=== PATIENT | male | born 1965 | race Caucasian/White ===

== ENCOUNTER 2022-08-14 12:00 | Inpatient (IN) | payer BC ==
[2022-08-26 17:19] VITALS: BMI 35.4
[2022-08-28] MEDS ORDERED: Fentanyl 250 MCG/5 ML VIAL ONE (06:40)
[2022-08-28] MEDS ORDERED: Midazolam HCl 2 mg/2 ml Vial ONE ×3 (06:40→08:54)
[2022-08-28] MEDS ORDERED: CEFAZOLIN 2 GM VIAL ONE ×2 (06:56→13:42)
[2022-08-28] MEDS ORDERED: Sodium Chloride 0.9% 0 ML ONE (06:56)
[2022-08-28] MEDS ORDERED: Bacitracin Zinc Ointment 30 gm TUBE ONE (06:57)
[2022-08-28] MEDS ORDERED: Ondansetron PF 4 MG/2 ML Vial ONE (07:10)
[2022-08-28] MEDS ORDERED: Rocuronium Bromide 10 MG/ML (10ML VIAL) ONE (07:10)
[2022-08-28] MEDS ORDERED: PROPOFOL 200 MG/20 ML VIAL ONE (07:10)
[2022-08-28] MEDS ORDERED: Vecuronium 10 MG VIAL ONE (07:10)
[2022-08-28] MEDS ORDERED: PHENYLEPHRINE-NS 100 MCG/ML 10 ML SYRINGE ONE (07:10)
[2022-08-28] MEDS ORDERED: Fentanyl 100 MCG/2 ML VIAL ONE ×3 (07:19→13:35)
[2022-08-28] MEDS ORDERED: Lidocaine 1% MPF 2 ML VIAL ONE (07:25)
[2022-08-28 08:58] LABS: SARS-CoV-2 NAA Rapid Test Not Detected (NotDetected)
[2022-08-28] MEDS ORDERED: SUGAMMADEX SODIUM 200 MG/2 ML VIAL ONE (10:51)
[2022-08-28] MEDS ORDERED: Mag-Al 1200 mg/1200 mg/30 ML UDCUP PO PRN (11:04)
[2022-08-28] MEDS ORDERED: Oxybutynin 5 MG TAB PO PRN (11:04)
[2022-08-28] MEDS ORDERED: hydrALAZINE 20 MG/ML VIAL SLOW IVP PRN (11:04)
[2022-08-28] MEDS ORDERED: Bisacodyl 10 MG SUPP PR PRN (11:04)
[2022-08-28] MEDS ORDERED: Dextrose 5% in Water 1,000 ML IV PRN (11:08)
[2022-08-28] MEDS ORDERED: Dextrose 50% Abboject 50 ML SYRINGE SLOW IVP PRN (11:08)
[2022-08-28] MEDS ORDERED: Insulin Regular 300 UNITS/3 ML VIAL SC PRN (11:08)
[2022-08-28] MEDS ORDERED: Promethazine HCl 25 MG SUPP PR PRN (11:26)
[2022-08-28] MEDS ORDERED: Ondansetron HCl/PF 4 MG/2 ML Vial IVP PRN (11:26)
[2022-08-28] MEDS ORDERED: Promethazine HCl 25 MG/ML VIAL IM PRN (11:26)
[2022-08-28] MEDS ORDERED: diphenhydrAMINE 25 MG CAP PO PRN (11:26)
[2022-08-28] MEDS ORDERED: Moisturizing Cream (Eucerin) 113 GM JAR TOP PRN (11:26)
[2022-08-28] MEDS ORDERED: Zolpidem Tartrate 5 MG TAB PO PRN (11:26)
[2022-08-28] MEDS ORDERED: diphenhydrAMINE 50 MG/ML VIAL IM PRN (11:26)
[2022-08-28] MEDS ORDERED: Bupivacaine 0.25% 10 ML VIAL EPIDURAL PRN (11:26)
[2022-08-28] MEDS ORDERED: Naloxone HCl 0.4 mg/ml Vial IVP PRN ×2 (11:26)
[2022-08-28] MEDS ORDERED: Communication Order-Pharmacy FS SCH ×2 (11:30)
[2022-08-28] MEDS ORDERED: Fentanyl 5 mcg/Bupivacaine 0.075% Cassette 100 ML EPIDURAL SCH (11:30)
[2022-08-28 13:10] LABS: Hemoglobin 13.6 g/dL (14.0-18.0); Mean Corpuscular HGB CONC 34.6 g/dL (32.0-36.0); Mean Corpuscular Volume 98.1 fl (78.0-98.0); Platelet Count 161 10x3/uL (130-400); RBC Distribution Width 11.8 % (11.5-14.5); Red Blood Cell (RBC) Count 4.01 mill/uL (4.70-6.10); White Blood Cell (WBC) Count 10.2 10x3/uL (4.8-10.8)
[2022-08-28 13:37] LABS: Anion Gap 18 mmol/L (10-20); BUN (Urea Nitrogen) 18 mg/dL (8.4-25.7); Calc. Creatinine Clearance 127 mL/min (70-130); Calcium 9.6 mg/dL (7.8-10.44); Carbon Dioxide 23 mmol/L (22-29); Chloride 103 mmol/L (98-107); Estimated GFR 88; Glucose 138 mg/dL (70-105); Potassium 4.3 mmol/L (3.5-5.1); Sodium 140 mmol/L (136-145)
[2022-08-28] MEDS ORDERED: Sodium Chloride 0.9% 100 ML ONE (13:42)
[2022-08-28] MEDS: CEFAZOLIN 2 GM in Sodium Chloride 0.9% 100 ML IVPB SCH ×2 (13:48→23:01)
[2022-08-28] MEDS: Sodium Chloride 0.9% 1,000 ML IV SCH ×2 (16:37→22:35)
[2022-08-28] MEDS: Docusate 100 MG CAP PO SCH (20:58)
[2022-08-29 06:06] LABS: Hemoglobin 12.1 g/dL (14.0-18.0); Mean Corpuscular HGB CONC 34.8 g/dL (32.0-36.0); Mean Corpuscular Hemoglobin 34.1 pg (27.0-31.0); Mean Corpuscular Volume 97.8 fl (78.0-98.0); Platelet Count 130 10x3/uL (130-400); RBC Distribution Width 11.8 % (11.5-14.5); Red Blood Cell (RBC) Count 3.56 mill/uL (4.70-6.10)
[2022-08-29] MEDS: FENTANYL 500 MCG/10 ML VIAL 500 MCG, Bupivacaine 0.75% 10 ML in Sodium Chloride 0.9% 80 ML EPIDURAL SCH ×2 (06:18→22:24)
[2022-08-29 06:34] LABS: Band 10 % (5-11); Lymphocytes 12 % (21-51); MDiff Complete? YES; Monocytes 11 % (0-10); Neutrophil 67 % (42-75)
[2022-08-29 06:38] LABS: Anion Gap 13 mmol/L (10-20); BUN (Urea Nitrogen) 13 mg/dL (8.4-25.7); Calc. Creatinine Clearance 131 mL/min (70-130); Calcium 8.6 mg/dL (7.8-10.44); Carbon Dioxide 26 mmol/L (22-29); Chloride 101 mmol/L (98-107); Estimated GFR 91; Glucose 156 mg/dL (70-105); Potassium 3.7 mmol/L (3.5-5.1); Sodium 136 mmol/L (136-145)
[2022-08-29] MEDS: CEFAZOLIN 2 GM in Sodium Chloride 0.9% 100 ML IVPB SCH (06:39)
[2022-08-29] MEDS: Docusate 100 MG CAP PO SCH (09:26)
[2022-08-29] MEDS: metFORMIN 500 MG TAB PO SCH ×2 (09:26→16:23)
[2022-08-29] MEDS: Glimepiride 4 MG TAB PO SCH (09:26)
[2022-08-29] MEDS: Losartan 25 MG TAB PO SCH (09:27)
[2022-08-29] MEDS: Potassium Chloride 10 MEQ TAB PO SCH (09:27)
[2022-08-29] MEDS: Atenolol 50 MG TAB PO SCH (09:27)
[2022-08-29] MEDS: Sodium Chloride 0.9% 1,000 ML IV SCH ×2 (09:32→16:23)
[2022-08-30] MEDS: Docusate 100 MG CAP PO SCH ×3 (00:32→21:04)
[2022-08-30 06:21] LABS: Hemoglobin 11.7 g/dL (14.0-18.0); Mean Corpuscular HGB CONC 36.6 g/dL (32.0-36.0); Mean Corpuscular Hemoglobin 36.2 pg (27.0-31.0); Mean Corpuscular Volume 98.9 fl (78.0-98.0); Mean Platelet Volume 7.7 fL (7.4-10.4); Platelet Count 118 10x3/uL (130-400); RBC Distribution Width 11.8 % (11.5-14.5); Red Blood Cell (RBC) Count 3.25 mill/uL (4.70-6.10); White Blood Cell (WBC) Count 9.2 10x3/uL (4.8-10.8)
[2022-08-30 06:33] LABS: Anion Gap 12 mmol/L (10-20); BUN (Urea Nitrogen) 6 mg/dL (8.4-25.7); Calc. Creatinine Clearance 151 mL/min (70-130); Calcium 8.2 mg/dL (7.8-10.44); Carbon Dioxide 24 mmol/L (22-29); Chloride 103 mmol/L (98-107); Estimated GFR 103; Glucose 138 mg/dL (70-105); Potassium 3.7 mmol/L (3.5-5.1); Sodium 135 mmol/L (136-145)
[2022-08-30 07:42] LABS: Band 16 % (5-11); Eosinophils 1 % (0-10); Lymphocytes 9 % (21-51); MDiff Complete? YES; Macrocytosis SLIGHT = 6-15 cells (100X) (0-5/hpf); Monocytes 11 % (0-10); Neutrophil 62 % (42-75); Platelet Morphology Comment Appears Decreased; Reactive Lymphocytes 1 % (0-10)
[2022-08-30] MEDS: Losartan 25 MG TAB PO SCH (09:31)
[2022-08-30] MEDS: metFORMIN 500 MG TAB PO SCH ×2 (09:32→18:38)
[2022-08-30] MEDS: Potassium Chloride 10 MEQ TAB PO SCH (09:32)
[2022-08-30] MEDS: Atenolol 50 MG TAB PO SCH (09:32)
[2022-08-30] MEDS: Glimepiride 4 MG TAB PO SCH (09:32)
[2022-08-30] MEDS: FENTANYL 500 MCG/10 ML VIAL 500 MCG, Bupivacaine 0.75% 10 ML in Sodium Chloride 0.9% 80 ML EPIDURAL SCH (15:26)
[2022-08-30] MEDS: Polyethylene Glycol 3350 17 GM Packet PO SCH (21:05)
[2022-08-31] MEDS: Ondansetron PF 4 MG/2 ML Vial IVP PRN (04:00)
[2022-08-31] MEDS: Promethazine HCl 25 MG/ML VIAL IM PRN (05:19)
[2022-08-31 06:19] LABS: Hemoglobin 12.9 g/dL (14.0-18.0); Mean Corpuscular Hemoglobin 34.1 pg (27.0-31.0); Mean Corpuscular Volume 97.5 fl (78.0-98.0); Mean Platelet Volume 8.1 fL (7.4-10.4); Platelet Count 188 10x3/uL (130-400); RBC Distribution Width 11.9 % (11.5-14.5); Red Blood Cell (RBC) Count 3.78 mill/uL (4.70-6.10); White Blood Cell (WBC) Count 8.7 10x3/uL (4.8-10.8)
[2022-08-31 06:36] LABS: Anion Gap 16 mmol/L (10-20); BUN (Urea Nitrogen) 12 mg/dL (8.4-25.7); Calc. Creatinine Clearance 115 mL/min (70-130); Calcium 8.6 mg/dL (7.8-10.44); Carbon Dioxide 19 mmol/L (22-29); Chloride 101 mmol/L (98-107); Estimated GFR 78; Glucose 202 mg/dL (70-105); Potassium 3.8 mmol/L (3.5-5.1); Sodium 132 mmol/L (136-145)
[2022-08-31 06:43] LABS: Band 46 % (5-11); Lymphocytes 3 % (21-51); MDiff Complete? YES; Metamyelocyte 3 % (0-0); Monocytes 17 % (0-10); Neutrophil 31 % (42-75)
[2022-08-31] MEDS: FENTANYL 500 MCG/10 ML VIAL 500 MCG, Bupivacaine 0.75% 10 ML in Sodium Chloride 0.9% 80 ML EPIDURAL SCH (08:28)
[2022-08-31] MEDS: Polyethylene Glycol 3350 17 GM Packet PO SCH ×2 (08:34→20:50)
[2022-08-31] MEDS: Docusate 100 MG CAP PO SCH ×2 (08:34→20:51)
[2022-08-31] MEDS: Potassium Chloride 10 MEQ TAB PO SCH (08:34)
[2022-08-31] MEDS: Glimepiride 4 MG TAB PO SCH (08:45)
[2022-08-31] MEDS: metFORMIN 500 MG TAB PO SCH (08:45)
[2022-08-31] MEDS ORDERED: Lorazepam 2 MG/ML VIAL IM PRN (08:53)
[2022-08-31] MEDS ORDERED: Lorazepam 2 MG/ML VIAL SLOW IVP PRN (08:57)
[2022-08-31] MEDS ORDERED: Electrolyte Replacement Protocol 1 EACH FS SCH (09:00)
[2022-08-31 10:03] LABS: ALT (SGPT) 29 U/L (8-55); AST (SGOT) 30 U/L (5-34); Albumin 3.3 g/dL (3.5-5.0); Alkaline Phosphatase 56 U/L (40-110); Bilirubin, Direct 1.2 mg/dL (0.1-0.3); Bilirubin, Total 2.2 mg/dL (0.2-1.2); Phosphorus 2.7 mg/dL (2.3-4.7); Protein, Total 6.5 g/dL (6.0-8.3)
[2022-08-31 10:08] LABS: Magnesium 0.8 mg/dL (1.6-2.6)
[2022-08-31] MEDS ORDERED: Magnesium Sulfate In Water 4 GM in Premix Bag 1 BAG IVPB SCH (10:15)
[2022-08-31] MEDS: Thiamine HCl 200 MG/2 ML VIAL SLOW IVP SCH (10:56)
[2022-08-31] MEDS: Sodium Chloride 0.9% 1,000 ML IV SCH ×2 (17:50→20:50)
[2022-08-31] MEDS ORDERED: Acetaminophen 500 MG TAB PO PRN (18:24)
[2022-08-31] MEDS ORDERED: Sodium Chloride 0.9% 500 ML IVPB SCH (19:15)
[2022-09-01] MEDS: Sodium Chloride 0.9% 1,000 ML IV SCH ×3 (06:32→20:26)
[2022-09-01 06:33] LABS: Anion Gap 13 mmol/L (10-20); BUN (Urea Nitrogen) 17 mg/dL (8.4-25.7); Calc. Creatinine Clearance 114 mL/min (70-130); Calcium 8.2 mg/dL (7.8-10.44); Carbon Dioxide 21 mmol/L (22-29); Chloride 105 mmol/L (98-107); Estimated GFR 77; Glucose 94 mg/dL (70-105); Magnesium 1.7 mg/dL (1.6-2.6); Potassium 3.3 mmol/L (3.5-5.1); Sodium 136 mmol/L (136-145)
[2022-09-01 06:46] LABS: Hemoglobin 11.6 g/dL (14.0-18.0); Mean Corpuscular HGB CONC 35.1 g/dL (32.0-36.0); Mean Corpuscular Hemoglobin 34.2 pg (27.0-31.0); Mean Corpuscular Volume 97.3 fl (78.0-98.0); Mean Platelet Volume 7.4 fL (7.4-10.4); Platelet Count 194 10x3/uL (130-400); RBC Distribution Width 12.1 % (11.5-14.5); White Blood Cell (WBC) Count 6.9 10x3/uL (4.8-10.8)
[2022-09-01] MEDS ORDERED: HYDROcodone/Acetaminophen 5/325 mg Tablet PO PRN (07:38)
[2022-09-01] MEDS: Potassium Chloride 10 MEQ TAB PO SCH (07:53)
[2022-09-01] MEDS: HYDROcodone/Acetaminophen 5/325 mg Tablet PO PRN ×4 (07:53→22:03)
[2022-09-01] MEDS: Docusate 100 MG CAP PO SCH ×2 (07:53→20:26)
[2022-09-01] MEDS: Polyethylene Glycol 3350 17 GM Packet PO SCH ×2 (07:55→20:27)
[2022-09-01] MEDS ORDERED: Magnesium 2 GM/50 ML(in water) 2 GM in Premix Bag 1 BAG IVPB SCH (08:00)
[2022-09-01] MEDS ORDERED: Potassium Chloride 20 MEQ TAB PO SCH (08:00)
[2022-09-01 11:40] LABS: Band 44 % (5-11); Eosinophils 2 % (0-10); Lymphocytes 17 % (21-51); MDiff Complete? YES; Monocytes 18 % (0-10); Neutrophil 13 % (42-75); RBC Morphology Normal; Reactive Lymphocytes 5 % (0-10)
[2022-09-01] MEDS: Thiamine HCl 200 MG/2 ML VIAL SLOW IVP SCH (11:48)
[2022-09-01] MEDS: Ondansetron PF 4 MG/2 ML Vial IVP PRN (14:00)
[2022-09-02] MEDS: Ondansetron PF 4 MG/2 ML Vial IVP PRN ×2 (04:23→17:27)
[2022-09-02 04:50] LABS: Hemoglobin 12.1 g/dL (14.0-18.0); Mean Corpuscular HGB CONC 35.1 g/dL (32.0-36.0); Mean Corpuscular Hemoglobin 34.9 pg (27.0-31.0); Mean Corpuscular Volume 99.3 fl (78.0-98.0); Mean Platelet Volume 7.2 fL (7.4-10.4); Platelet Count 254 10x3/uL (130-400); RBC Distribution Width 12.2 % (11.5-14.5); Red Blood Cell (RBC) Count 3.46 mill/uL (4.70-6.10); White Blood Cell (WBC) Count 7.3 10x3/uL (4.8-10.8)
[2022-09-02 05:10] LABS: Anion Gap 15 mmol/L (10-20); BUN (Urea Nitrogen) 15 mg/dL (8.4-25.7); Calc. Creatinine Clearance 137 mL/min (70-130); Calcium 8.3 mg/dL (7.8-10.44); Carbon Dioxide 21 mmol/L (22-29); Chloride 105 mmol/L (98-107); Estimated GFR 96; Glucose 157 mg/dL (70-105); Magnesium 1.9 mg/dL (1.6-2.6); Potassium 3.7 mmol/L (3.5-5.1); Sodium 137 mmol/L (136-145)
[2022-09-02 05:23] LABS: MDiff Complete? YES
[2022-09-02 05:24] LABS: Band 45 % (5-11); Lymphocytes 8 % (21-51); Monocytes 37 % (0-10); Neutrophil 10 % (42-75); Toxic Granulation SLIGHT
[2022-09-02] MEDS ORDERED: Magnesium 2 GM/50 ML(in water) 2 GM in Premix Bag 1 BAG IVPB SCH (08:00)
[2022-09-02] MEDS: Thiamine HCl 200 MG/2 ML VIAL SLOW IVP SCH (08:17)
[2022-09-02] MEDS: Potassium Chloride 10 MEQ TAB PO SCH (08:18)
[2022-09-02] MEDS: Polyethylene Glycol 3350 17 GM Packet PO SCH ×2 (08:18→21:20)
[2022-09-02] MEDS: Docusate 100 MG CAP PO SCH ×2 (08:18→21:20)
[2022-09-02] MEDS: Promethazine HCl 25 MG/ML VIAL IM PRN ×2 (09:53→22:24)
[2022-09-02] MEDS: Sodium Chloride 0.9% 1,000 ML IV SCH ×2 (11:11→22:22)
[2022-09-02] MEDS ORDERED: SUGAMMADEX SODIUM 200 MG/2 ML VIAL ONE (12:30)
[2022-09-02] MEDS ORDERED: Fentanyl 250 MCG/5 ML VIAL ONE (12:30)
[2022-09-03] MEDS ORDERED: Morphine 2 MG/ML VIAL SLOW IVP PRN (00:18)
[2022-09-03 07:34] LABS: Hemoglobin 11.3 g/dL (14.0-18.0); Mean Corpuscular HGB CONC 34.4 g/dL (32.0-36.0); Mean Corpuscular Hemoglobin 34.2 pg (27.0-31.0); Mean Corpuscular Volume 99.4 fl (78.0-98.0); Mean Platelet Volume 6.9 fL (7.4-10.4); Platelet Count 278 10x3/uL (130-400); Red Blood Cell (RBC) Count 3.32 mill/uL (4.70-6.10); White Blood Cell (WBC) Count 8.1 10x3/uL (4.8-10.8)
[2022-09-03 07:45] LABS: Anion Gap 15 mmol/L (10-20); BUN (Urea Nitrogen) 17 mg/dL (8.4-25.7); Calc. Creatinine Clearance 151 mL/min (70-130); Calcium 8.7 mg/dL (7.8-10.44); Carbon Dioxide 25 mmol/L (22-29); Chloride 105 mmol/L (98-107); Estimated GFR 103; Glucose 121 mg/dL (70-105); Magnesium 1.9 mg/dL (1.6-2.6); Potassium 3.7 mmol/L (3.5-5.1); Sodium 141 mmol/L (136-145)
[2022-09-03] MEDS: Sodium Chloride 0.9% 1,000 ML IV SCH ×2 (07:51→17:49)
[2022-09-03] MEDS: Potassium Chloride 10 MEQ TAB PO SCH (07:52)
[2022-09-03] MEDS: Polyethylene Glycol 3350 17 GM Packet PO SCH ×2 (08:04→21:36)
[2022-09-03] MEDS: Docusate 100 MG CAP PO SCH ×2 (08:04→21:36)
[2022-09-03] MEDS: Thiamine 100 MG TAB PO SCH (08:04)
[2022-09-03] MEDS ORDERED: Magnesium 2 GM/50 ML(in water) 2 GM in Premix Bag 1 BAG IVPB SCH (09:00)
[2022-09-03 09:19] LABS: Band 28 % (5-11); Lymphocytes 14 % (21-51); MDiff Complete? YES; Monocytes 24 % (0-10); Neutrophil 34 % (42-75); Platelet Morphology Comment Appears Adequate; Polychromasia SLIGHT = 2-3 cells (100X) (0-2/hpf)
[2022-09-03] MEDS: diphenhydrAMINE 50 MG/ML VIAL IVP PRN (21:35)
[2022-09-04] MEDS: Sodium Chloride 0.9% 1,000 ML IV SCH ×3 (03:50→23:00)
[2022-09-04] MEDS: Docusate 100 MG CAP PO SCH ×2 (07:40→20:40)
[2022-09-04] MEDS: Potassium Chloride 10 MEQ TAB PO SCH (07:40)
[2022-09-04] MEDS: Polyethylene Glycol 3350 17 GM Packet PO SCH ×2 (07:40→20:40)
[2022-09-04] MEDS: Thiamine 100 MG TAB PO SCH (07:41)
[2022-09-04 13:40] LABS: Hemoglobin 11.9 g/dL (14.0-18.0); Mean Corpuscular Hemoglobin 33.6 pg (27.0-31.0); Mean Corpuscular Volume 98.7 fl (78.0-98.0); Platelet Count 295 10x3/uL (130-400); RBC Distribution Width 12.1 % (11.5-14.5); Red Blood Cell (RBC) Count 3.53 mill/uL (4.70-6.10); White Blood Cell (WBC) Count 9.8 10x3/uL (4.8-10.8)
[2022-09-04 14:01] LABS: Anion Gap 17 mmol/L (10-20); BUN (Urea Nitrogen) 17 mg/dL (8.4-25.7); Calc. Creatinine Clearance 169 mL/min (70-130); Carbon Dioxide 23 mmol/L (22-29); Chloride 109 mmol/L (98-107); Estimated GFR 106; Glucose 93 mg/dL (70-105); MDiff Complete? YES; Potassium 3.7 mmol/L (3.5-5.1); Sodium 145 mmol/L (136-145)
[2022-09-04 14:02] LABS: Band 25 % (5-11); Eosinophils 1 % (0-10); Lymphocytes 21 % (21-51); Metamyelocyte 1 % (0-0); Monocytes 10 % (0-10); Myelocyte 1 % (0-0); Neutrophil 40 % (42-75); Platelet Morphology Comment Appears Adequate; Polychromasia SLIGHT = 2-3 cells (100X) (0-2/hpf); Toxic Granulation SLIGHT
[2022-09-04] MEDS: diphenhydrAMINE 50 MG/ML VIAL IVP PRN (22:03)
[2022-09-05] MEDS: Sodium Chloride 0.9% 1,000 ML IV SCH ×2 (02:15→17:00)
[2022-09-05 05:55] LABS: #Basophils 0.1 thou/uL (0.0-0.2); #Eosinphils 0.1 thou/uL (0.0-0.7); #Lymphocytes 1.2 thou/uL (1.20-3.40); #Monocytes 1.2 thou/uL (0.11-0.59); #Neutrophils 6.2 thou/uL (1.40-6.50); %Basophils 0.7 % (0.0-1.0); %Eosinophils 1.6 % (0.0-10.0); %Lymphocytes 13.4 % (21.0-51.0); %Monocytes 13.9 % (0.0-10.0); %Neutrophils 70.4 % (42.0-75.0); Hemoglobin 11.2 g/dL (14.0-18.0); Mean Corpuscular HGB CONC 33.6 g/dL (32.0-36.0); Mean Corpuscular Volume 98.4 fl (78.0-98.0); Mean Platelet Volume 6.8 fL (7.4-10.4); Platelet Count 294 10x3/uL (130-400); RBC Distribution Width 12.2 % (11.5-14.5); Red Blood Cell (RBC) Count 3.38 mill/uL (4.70-6.10); White Blood Cell (WBC) Count 8.7 10x3/uL (4.8-10.8)
[2022-09-05 06:12] LABS: Anion Gap 17 mmol/L (10-20); BUN (Urea Nitrogen) 14 mg/dL (8.4-25.7); Calc. Creatinine Clearance 178 mL/min (70-130); Calcium 8.5 mg/dL (7.8-10.44); Carbon Dioxide 15 mmol/L (22-29); Chloride 112 mmol/L (98-107); Estimated GFR 108; Glucose 86 mg/dL (70-105); Potassium 3.4 mmol/L (3.5-5.1); Sodium 141 mmol/L (136-145)
[2022-09-05] MEDS: Docusate 100 MG CAP PO SCH ×2 (09:24→21:00)
[2022-09-05] MEDS: Potassium Chloride 10 MEQ TAB PO SCH (09:24)
[2022-09-05] MEDS: Thiamine 100 MG TAB PO SCH (09:25)
[2022-09-05] MEDS: Polyethylene Glycol 3350 17 GM Packet PO SCH ×2 (09:25→21:00)
[2022-09-05] MEDS: Potassium Chloride 20 MEQ in Premix Bag 1 BAG IVPB SCH ×2 (09:41→14:15)
[2022-09-05] MEDS: diphenhydrAMINE 50 MG/ML VIAL IVP PRN (21:23)
[2022-09-06] MEDS: Sodium Chloride 0.9% 1,000 ML IV SCH (03:15)
[2022-09-06 05:39] LABS: #Eosinphils 0.1 thou/uL (0.0-0.7); #Lymphocytes 1.4 thou/uL (1.20-3.40); #Monocytes 1.2 thou/uL (0.11-0.59); #Neutrophils 6.6 thou/uL (1.40-6.50); %Basophils 0.4 % (0.0-1.0); %Eosinophils 1.3 % (0.0-10.0); %Lymphocytes 14.9 % (21.0-51.0); %Monocytes 12.4 % (0.0-10.0); Hemoglobin 11.8 g/dL (14.0-18.0); Mean Corpuscular HGB CONC 33.3 g/dL (32.0-36.0); Mean Corpuscular Hemoglobin 32.9 pg (27.0-31.0); Mean Corpuscular Volume 99.1 fl (78.0-98.0); Mean Platelet Volume 6.8 fL (7.4-10.4); Platelet Count 355 10x3/uL (130-400); RBC Distribution Width 12.3 % (11.5-14.5); Red Blood Cell (RBC) Count 3.57 mill/uL (4.70-6.10); White Blood Cell (WBC) Count 9.3 10x3/uL (4.8-10.8)
[2022-09-06 06:01] LABS: Anion Gap 19 mmol/L (10-20); BUN (Urea Nitrogen) 13 mg/dL (8.4-25.7); Calc. Creatinine Clearance 163 mL/min (70-130); Calcium 8.9 mg/dL (7.8-10.44); Carbon Dioxide 15 mmol/L (22-29); Chloride 112 mmol/L (98-107); Estimated GFR 105; Glucose 79 mg/dL (70-105); Potassium 3.5 mmol/L (3.5-5.1); Sodium 142 mmol/L (136-145)
[2022-09-06] MEDS ORDERED: Potassium Chloride 20 MEQ TAB PO SCH (08:00)
[2022-09-06] MEDS ORDERED: Atenolol 50 MG TAB PO SCH (10:30)
[2022-09-06] MEDS: Thiamine 100 MG TAB PO SCH (10:57)
[2022-09-06] MEDS: Docusate 100 MG CAP PO SCH ×2 (10:57→21:00)
[2022-09-06] MEDS: Potassium Chloride 10 MEQ TAB PO SCH (10:59)
[2022-09-06] MEDS: Polyethylene Glycol 3350 17 GM Packet PO SCH ×2 (11:00→21:00)
[2022-09-06] MEDS: diphenhydrAMINE 50 MG/ML VIAL IVP PRN (22:28)
[2022-09-07 06:41] LABS: #Basophils 0.1 thou/uL (0.0-0.2); #Eosinphils 0.1 thou/uL (0.0-0.7); #Lymphocytes 1.4 thou/uL (1.20-3.40); #Neutrophils 8.9 thou/uL (1.40-6.50); %Basophils 0.4 % (0.0-1.0); %Eosinophils 1.2 % (0.0-10.0); %Lymphocytes 11.8 % (21.0-51.0); %Monocytes 8.9 % (0.0-10.0); %Neutrophils 77.6 % (42.0-75.0); Hemoglobin 11.9 g/dL (14.0-18.0); Mean Corpuscular HGB CONC 33.9 g/dL (32.0-36.0); Mean Corpuscular Hemoglobin 33.3 pg (27.0-31.0); Mean Corpuscular Volume 98.2 fl (78.0-98.0); Mean Platelet Volume 6.9 fL (7.4-10.4); Platelet Count 304 10x3/uL (130-400); RBC Distribution Width 12.3 % (11.5-14.5); Red Blood Cell (RBC) Count 3.58 mill/uL (4.70-6.10); White Blood Cell (WBC) Count 11.5 10x3/uL (4.8-10.8)
[2022-09-07 07:06] LABS: Anion Gap 18 mmol/L (10-20); BUN (Urea Nitrogen) 13 mg/dL (8.4-25.7); Calc. Creatinine Clearance 157 mL/min (70-130); Calcium 8.8 mg/dL (7.8-10.44); Carbon Dioxide 16 mmol/L (22-29); Chloride 110 mmol/L (98-107); Estimated GFR 104; Glucose 99 mg/dL (70-105); Potassium 3.7 mmol/L (3.5-5.1); Sodium 140 mmol/L (136-145)
[2022-09-07] MEDS ORDERED: Atenolol 50 MG TAB PO SCH (09:00)
[2022-09-07] MEDS: Potassium Chloride 10 MEQ TAB PO SCH (09:13)
[2022-09-07] MEDS: Thiamine 100 MG TAB PO SCH (09:13)
[2022-09-07] MEDS: Amlodipine 5 MG TAB PO SCH (09:13)
[2022-09-07] MEDS: Aspirin 81 mg Enteric Coated Tablet PO SCH (09:13)
[2022-09-07] MEDS: Polyethylene Glycol 3350 17 GM Packet PO SCH ×2 (09:16→21:49)
[2022-09-07] MEDS: Docusate 100 MG CAP PO SCH ×2 (09:16→21:49)
[2022-09-08] MEDS ORDERED: Atenolol 50 MG TAB PO SCH (09:00)
[2022-09-08 09:13] VITALS: TEMP 98.2
[2022-09-08] MEDS: Amlodipine 5 MG TAB PO SCH (09:15)
[2022-09-08] MEDS: Docusate 100 MG CAP PO SCH (09:15)
[2022-09-08] MEDS: Thiamine 100 MG TAB PO SCH (09:15)
[2022-09-08] MEDS: Polyethylene Glycol 3350 17 GM Packet PO SCH (09:15)
[2022-09-08] MEDS: Aspirin 81 mg Enteric Coated Tablet PO SCH (09:15)
[2022-09-08] MEDS: Potassium Chloride 10 MEQ TAB PO SCH (09:15)
[2022-09-08 12:30] VITALS: BP 156/80
== END 2022-09-08 15:50 | disposition home or self-care (01) | DRG 657 ==
LOC: SURG A 08-28 05:47 → SJJU 08-28 15:15
PROVIDERS: ADMIT Family Medicine; ATTEND Urology
PROC: 0TB00ZZ Excision of Right Kidney, Open Approach (ICD-10-PCS; principal; 2022-08-28)
PROC: HZ2ZZZZ Detoxification Services for Substance Abuse Treatment (ICD-10-PCS; 2022-08-31)
PROC: 0D9670Z Drainage of Stomach with Drainage Device, Via Natural or Artificial Opening (ICD-10-PCS; 2022-09-02)
DX: C64.1 Malignant neoplasm of right kidney, except renal pelvis (principal); E87.1 Hypo-osmolality and hyponatremia; E87.20 Acidosis, unspecified; K91.89 Other postprocedural complications and disorders of digestive system; K56.7 Ileus, unspecified; F10.239 Alcohol dependence with withdrawal, unspecified; E66.01 Morbid (severe) obesity due to excess calories; K76.0 Fatty (change of) liver, not elsewhere classified; Z20.822 Contact with and (suspected) exposure to COVID-19; E11.9 Type 2 diabetes mellitus without complications; I10 Essential (primary) hypertension; E78.5 Hyperlipidemia, unspecified; K21.9 Gastro-esophageal reflux disease without esophagitis; E83.42 Hypomagnesemia; Y83.6 Removal of other organ (partial) (total) as the cause of abnormal reaction of the patient, or of later complication, without mention of misadventure at the time of the procedure; E87.6 Hypokalemia; Z68.35 Body mass index [BMI] 35.0-35.9, adult; Z79.899 Other long term (current) drug therapy; Z79.82 Long term (current) use of aspirin; Z79.84 Long term (current) use of oral hypoglycemic drugs; Z98.42 Cataract extraction status, left eye; Z98.41 Cataract extraction status, right eye
CPT/HCPCS: 36415; 36416; 71045; 74018; 80048; 80076; 83735; 84100; 85025; 85027; 85060; 86850; 86900; 86901; 87811; 88307; C1713; C1776; J0360; J1200; J1642; J1815; J2250; J2272; J2405; J2550; J2704; J3010; J3411; J3475; J3480; J3490; J7030; J7050; U0002

== ENCOUNTER 2022-08-14 12:10 | Outpatient (CLI) | payer BC ==
[2022-08-14 13:57] LABS: Bilirubin Neg (Negative); Blood, Urine Negative (Negative); Clarity Clear (Clear); Glucose, Urine (Dipstick) Normal (Negative); Ketone, Urine Negative (Negative); Leukocyte Negative (Negative); Nitrite Negative (Negative); Protein, Urine (Dipstick) Negative (Neg-Trace); Urobilinogen Normal mg/dL (Less than 2); pH, Urine 6.5 (5.0-9.0)
[2022-08-14 14:20] LABS: INR-International Normal Ratio 1.1; PTT 26.8 sec (22.0-33.0); Prothrombin Time 11.5 sec (9.5-12.1)
[2022-08-14 14:51] LABS: Bacteria/HPF Rare-Few HPF (None Seen); RBC/HPF None Seen HPF (0-3); WBC/HPF None Seen HPF (0-3)
[2022-08-14 14:55] LABS: Squamous Epithelial None Seen HPF (0-3)
[2022-08-14 15:01] LABS: Anion Gap 15 mmol/L (10-20); BUN (Urea Nitrogen) 14 mg/dL (8.4-25.7); Calc. Creatinine Clearance 0 mL/min (70-130); Calcium 9.8 mg/dL (7.8-10.44); Carbon Dioxide 25 mmol/L (22-29); Chloride 101 mmol/L (98-107); Estimated GFR 85; Glucose 197 mg/dL (70-105); Potassium 3.9 mmol/L (3.5-5.1); Sodium 137 mmol/L (136-145)
[2022-08-14 15:03] LABS: Hemoglobin 14.9 g/dL (13.5-17.5); Mean Corpuscular HGB CONC 35.6 g/dL (32.0-36.0); Mean Corpuscular Hemoglobin 33.4 pg (27.0-33.0); Mean Corpuscular Volume 93.7 fl (81.2-95.1); Mean Platelet Volume 10.4 fl (7.4-10.4); Platelet Count 172 10x3/uL (150-450); RBC Distribution Width 12.5 % (11.5-14.5); Red Blood Cell (RBC) Count 4.46 10x6/uL (4.32-5.72); White Blood Cell (WBC) Count 7.6 10x3/uL (3.5-10.5)
== END 2022-08-14 12:11 | disposition home or self-care (01) ==
LOC: LABBT 12:10
PROVIDERS: ATTEND Urology
DX: Z01.818 Encounter for other preprocedural examination (principal); E11.69 Type 2 diabetes mellitus with other specified complication; N28.89 Other specified disorders of kidney and ureter; K76.0 Fatty (change of) liver, not elsewhere classified; E66.01 Morbid (severe) obesity due to excess calories
CPT/HCPCS: 71046; 80048; 81001; 85027; 85610; 85730; 87086; 93005; 93010

== ENCOUNTER 2024-04-29 09:58 | Outpatient (CLI) | payer BC ==
[2024-04-29] MEDS ORDERED: Magnevist 469MG/ML 20 ML VIAL ONE (14:27)
== END 2024-04-29 09:59 | disposition home or self-care (01) ==
LOC: MRI 09:58
PROVIDERS: ATTEND Psychiatry & Neurology Neurology
DX: R56.9 Unspecified convulsions (principal); R55 Syncope and collapse
CPT/HCPCS: 70553; 76376; A9579